=== PATIENT | male | born 1990 | race Caucasian/White ===

== ENCOUNTER 2016-08-05 13:13 | Emergency (ER) | payer BC ==
[~2016-08-05] VITALS: Ht 180.3 cm; Wt 106.6 kg
[2016-08-05 13:32] VITALS: BP 124/62
== END 2016-08-05 14:31 | disposition home or self-care (01) ==
LOC: ER 13:18
DX: H01.006 Unspecified blepharitis left eye, unspecified eyelid (principal); J45.909 Unspecified asthma, uncomplicated; F10.10 Alcohol abuse, uncomplicated
CPT/HCPCS: 82962; 99283; A4606; Z7610